=== PATIENT | female | born 1975 | race Caucasian/White ===

== ENCOUNTER 2016-12-12 12:41 | Emergency (ER) | payer OTHER ==
[~2016-12-12] VITALS: Ht 167.6 cm; Wt 103.2 kg
[2016-12-12 12:47] VITALS: TEMP 37.6; Ht 167.6 cm; Wt 103.2 kg
[2016-12-12] MEDS ORDERED: SODIUM CHLORIDE 0.9% 1000ML 1,000 ML IV STA (13:14)
[2016-12-12] MEDS ORDERED: VALA500T39 PO (13:29)
[2016-12-12 13:34] LABS: BASO % 0.4 %; BASO ABS # 0.03 K/uL (0-0.2); COMPLETE YES; EOS % 2.8 %; HEMATOCRIT 41.7 % (37-47); IG% 0.1 %; LYMPH % 35.5 %; LYMPH ABS # 2.63 K/uL (1.2-3.4); MEAN CELL VOLUME 89.3 fL (80-100); MEAN CORPUSCULAR HEMOGLOBIN 29.8 pg (25-34); MEAN CORPUSCULAR HGB CONC 33.3 g/dl (32-36); MEAN PLATELET VOLUME 10.6 fL (7.4-10.4); NEUT % 56.2 %; PLATELET COUNT 276 K/uL (130-400); RED BLOOD COUNT 4.67 M/uL (4.2-5.4)
[2016-12-12 13:41] LABS: INR 0.9 (0.9-1.1); PARTIAL THROMBOPLASTIN RATIO 1.1; PROTHROMBIN TIME (PATIENT) 9.7 SECONDS (9.0-12.0)
[2016-12-12 13:42] LABS: BUN/CREATININE RATIO 19.2 (10-20); CALCIUM 8.3 mg/dl (8.5-10.1); CREATININE 0.77 mg/dl (0.60-1.20); POTASSIUM 3.6 mmol/L (3.5-5.1)
[2016-12-12 13:47] LABS: CKMB/CK RATIO 0.9 (0-3.0)
[2016-12-12 13:54] LABS: PREG INTERNAL NEGATIVE QC NEG CLEAR BACKGROUND; PREG INTERNAL POSITIVE QC POS CONTROL LINE
--- NOTE | 2016-12-12 13:57 | DIAGNOSTIC IMAGING REPORT ---
CHEST ONE VIEW PORTABLE CLINICAL HISTORY: CHEST PAIN dyspnea COMPARISON STUDY: No previous studies for comparison. FINDINGS: The bones soft tissues and hemidiaphragms are normal. The cardiomediastinal silhouette is normal. The lungs are clear. The pulmonary vasculature is normal. IMPRESSION: Negative chest. Electronically signed by: Bonifacio Bruno M.D. 12/12/2016 1:56 PM Dictated Date/Time: 12/12/2016 1:56 PM
[2016-12-12 16:08] VITALS: BP 124/85; PULSE 62; O2SAT 96
--- NOTE | 2016-12-12 20:14 | EMERGENCY ROOM VISIT NOTE ---
ED Visit Note First contact with patient: 13:00 Chief Complaint: Chest pain. History of Present Illness: Ms. Clark is a 40-year-old white female who ambulates into the ED complaining of chest pain over the left sternal border. Patient reports she has no significant past medical history but does report her family history includes multiple family members with history of blood clots. Patient reports approximately 2 hours ago she was getting out of her car and developed an acute onset of left sternal border chest pain. Since that time her pain has been intermittent and waxing and waning in intensity. She describes her pain as a sharp sensation. The pain is nonradiating. She currently rates her discomfort at rest 2/10 it has been as high as 8/10. She has not taken any medications for her discomfort prior to arrival at the hospital. She has not identified any aggravating or alleviating factors related to her discomfort. She reports associated with her discomfort she was walking across a parking lot and felt mildly short of breath but that has resolved and she is not currently short of breath. She denies fevers, chills, sweats, skin eruptions, skin color changes, headache , dizziness, lightheadedness, upper respiratory tract symptoms, cough, wheezing , shortness of breath, palpitations, orthopnea, dependent edema, claudication, cramping, recent surgery/inactivity/extended travel, tobacco and estrogen use, abdominal pain, nausea, vomiting, back/flank pain. Review of Systems: As noted above in history of present illness. All body systems were reviewed and found to be negative as noted above. Past Medical History: Unspecified skin disorder, herpes, status post tonsillectomy and adenoidectomy. Current Medications: Bowel tracts. Allergies to Medications: Patient denies. Social History: Patient is currently self-employed; she feels safe in her home environment; she denies tobacco use; she admits to alcohol use. Physical Examination: Vital Signs: Date Time Temp Pulse Resp B/P Pulse Ox O2 Delivery O2 Flow Rate FiO2 12/12/16 16:08 62 16 124/85 96 12/12/16 15:41 65 16 130/78 98 Room Air 12/12/16 13:46 63 18 102/58 96 Room Air 12/12/16 13:27 61 12/12/16 12:47 Room Air 12/12/16 12:47 37.6 59 20 119/75 98 Room Air GENERAL: 40-year-old f in no acute distress, nontoxic-appearing, afebrile and hemodynamically stable. NEUROLOGICAL: Awake, alert and oriented to person, place and time. Answering questions appropriately and following commands. Normal gait. Good hand eye coordination. No focal motor sensory deficits. SKIN: Warm, dry and pink. No soft tissue eruptions or trauma noted. HEENT: Atraumatic and normocephalic. PERRL. Sclera white and conjunctiva pink. No drainage from naris. Oral cavity moist and pink. Pharynx is nonerythematous or edematous. Speech normal. No lymphadenopathy. Trachea midline. No jugular venous distention. No carotid bruits. BACK: No tenderness over the bony spine. No CVA tenderness. THORAX: Lungs sounds are clear to auscultation and equal bilaterally with symmetrical chest wall. No wheezing, rales or rhonchi. No crepitus, tenderness , subcutaneous air or deformities noted. HEART: Regular rate and rhythm. No gallops, rubs or murmurs are appreciated. ABDOMEN: Flat, soft and nontender. Positive bowel sounds in all quadrants. No guarding, rigidity or organomegaly. EXTREMITIES: Moves all extremities well on command and with purpose. All distal neurovascular statuses are intact and equal bilaterally. No calf tenderness or cords. ED Course: Patient is assessed as noted above. Laboratory Testing: Test 12/12/16 13:05 12/12/16 13:23 12/12/16 15:38 Range/Units White Blood Count 7.40 4.8-10.8 K/uL Red Blood Count 4.67 4.2-5.4 M/uL Hemoglobin 13.9 12.0-16.0 g/dL Hematocrit 41.7 37-47 % Mean Corpuscular Volume 89.3 80-100 fL Mean Corpuscular Hemoglobin 29.8 25-34 pg Mean Corpuscular Hemoglobin Concent 33.3 32-36 g/dl Platelet Count 276 130-400 K/uL Mean Platelet Volume 10.6 7.4-10.4 fL Neutrophils (%) (Auto) 56.2 % Lymphocytes (%) (Auto) 35.5 % Monocytes (%) (Auto) 5.0 % Eosinophils (%) (Auto) 2.8 % Basophils (%) (Auto) 0.4 % Neutrophils # (Auto) 4.15 1.4-6.5 K/uL Lymphocytes # (Auto) 2.63 1.2-3.4 K/uL Monocytes # (Auto) 0.37 0.11-0.59 K/uL Eosinophils # (Auto) 0.21 0-0.5 K/uL Basophils # (Auto) 0.03 0-0.2 K/uL RDW Standard Deviation 43.8 36.4-46.3 fL RDW Coefficient of Variation 13.3 11.5-14.5 % Immature Granulocyte % (Auto) 0.1 % Immature Granulocyte # (Auto) 0.01 0.00-0.02 K/uL Prothrombin Time 9.7 9.0-12.0 SECONDS Prothromb Time International Ratio 0.9 0.9-1.1 Activated Partial Thromboplast Time 28.1 21.0-31.0 SECONDS Partial Thromboplastin Ratio 1.1 Sodium Level 143 136-145 mmol/L Potassium Level 3.6 3.5-5.1 mmol/L Chloride Level 108 98-107 mmol/L Carbon Dioxide Level 29 21-32 mmol/L Anion Gap 6.0 3-11 mmol/L Blood Urea Nitrogen 15 7-18 mg/dl Creatinine 0.77 0.60-1.20 mg/dl Est Creatinine Clear Calc Drug Dose 116.6 ml/min Estimated GFR () 111.2 Estimated GFR (Non- 95.9 BUN/Creatinine Ratio 19.2 10-20 Random Glucose 82 70-99 mg/dl Calcium Level 8.3 8.5-10.1 mg/dl Total Bilirubin 0.5 0.2-1 mg/dl Direct Bilirubin 0.1 0-0.2 mg/dl Aspartate Amino Transf (AST/SGOT) 15 15-37 U/L Alanine Aminotransferase (ALT/SGPT) 18 12-78 U/L Alkaline Phosphatase 93 45-117 U/L Total Creatine Kinase 74 26-192 U/L Creatine Kinase MB 0.7 0.5-3.6 ng/ml Creatine Kinase MB Ratio 0.9 0-3.0 Total Protein 7.2 6.4-8.2 gm/dl Albumin 3.8 3.4-5.0 gm/dl Lipase 142 73-393 U/L Human Chorionic Gonadotropin, Qual NEG NEG Bedside D-Dimer 380 0-450 ng/mlFEU Bedside Troponin I 0.000 0.000 0-0.045 ng/ml EKG: #1 1314 Was read by myself and reviewed with Dr. Lea; and shows normal sinus rhythm with a ventricular rate of 61 bpm. Normal axis, intervals and complexes. No acute ST changes indicating ischemia, injury or infarction. Medical records were reviewed and no additional EKGs were found for comparison. EKG: #2 1533 Was read by myself and reviewed with Dr. Lea; and shows normal sinus rhythm with a ventricular rate of 60 bpm. Normal axis, intervals and complexes. No acute ST changes from previous. Chest X-Rays: Were read by myself and the radiologist showing no acute infiltrates, effusions or pneumothorax. Normal heart silhouette and bony anatomy. Patient was hydrated with normal saline. She was offered pain medications and refused. Patient was reassessed multiple times during her stay in the emergency department. Patient's case was reviewed with Dr. Lea; they're agreed on diagnostic approach, treatment, disposition and plan. Patient was educated about tonight's findings and instructed on her treatment plan; she verbalizes understanding and agreement with this plan. Clinical Impression: Intermittent left-sided chest pain. Decision-Making: Initially my differential diagnosis I considered acute coronary syndrome, thoracic aneurysm, pneumothorax, pneumonia, pulmonary embolism, musculoskeletal disorder and other causes. Disposition: Patient discharged home in stable condition accompanied by her mother; prior to departure she was reassessed and subjectively reported she was feeling much better and rated her discomfort 1/10. Plan: Patient was encouraged to use ibuprofen or acetaminophen as needed for pain. Patient was encouraged to contact her PCP for recheck and follow-up. Patient was encouraged return the ED for worsening/uncontrolled pain, sensations of heart racing, shortness of breath, fevers or any new/concerning symptoms.
== END 2016-12-12 16:09 | disposition home or self-care (01) ==
LOC: C.EDB 12:44 → C.EDA 16:09
DX: R07.9 Chest pain, unspecified (principal); B00.9 Herpesviral infection, unspecified